=== PATIENT | male | born 1970 | race Caucasian/White ===

== ENCOUNTER 2017-10-09 19:26 | Emergency (ER) | payer OTHER ==
[2017-10-09] MEDS ORDERED: Acetaminophen 325 MG Suppository ONE (19:30)
[2017-10-09] MEDS ORDERED: Acetaminophen 650 MG Suppository ONE (19:30)
[2017-10-09] MEDS ORDERED: Ibuprofen 800 MG TAB ONE (19:36)
[2017-10-09 19:50] LABS: #Lymphocytes 0.5 thou/uL (1.20-3.40); #Monocytes 0.2 thou/uL (0.11-0.59); #Neutrophils 5.2 thou/uL (1.40-6.50); %Basophils 0.5 % (0.0-1.0); %Lymphocytes 8.7 % (21.0-51.0); %Monocytes 2.9 % (0.0-10.0); %Neutrophils 87.8 % (42.0-75.0); Hemoglobin 17.9 g/dL (14.0-18.0); Mean Corpuscular HGB CONC 35.7 g/dL (32.0-36.0); Mean Corpuscular Hemoglobin 32.3 pg (27.0-31.0); Mean Corpuscular Volume 90.6 fl (80.0-94.0); Platelet Count 153 thou/uL (130-400); RBC Distribution Width 11.5 % (11.5-14.5); Red Blood Cell (RBC) Count 5.55 mill/uL (4.70-6.10)
[2017-10-09 20:01] LABS: ALT (SGPT) 22 U/L (8-55); AST (SGOT) 20 U/L (5-34); Albumin 4.5 g/dL (3.5-5.0); Alkaline Phosphatase 50 U/L (40-150); Anion Gap 15 mmol/L (10-20); BUN (Urea Nitrogen) 15 mg/dL (8.9-20.6); Bilirubin, Total 0.7 mg/dL (0.2-1.2); Calc. Creatinine Clearance 0 mL/min (70-130); Calcium 9.1 mg/dL (7.8-10.44); Carbon Dioxide 24 mmol/L (22-29); Chloride 103 mmol/L (98-107); Estimated GFR-MDRD 59; Globulin 2.8 g/dL (2.4-3.5); Glucose 122 mg/dL (70-105); Potassium 3.6 mmol/L (3.5-5.1); Protein, Total 7.3 g/dL (6.0-8.3); Sodium 138 mmol/L (136-145)
[2017-10-09] MEDS ORDERED: Ketorolac Tromethamine 30 MG/ML VIAL ONE (20:29)
[2017-10-09] MEDS ORDERED: cefTRIAXone\\ROCEPHIN 2 GM VIAL ONE (20:29)
[2017-10-09] MEDS ORDERED: Oseltamivir 75 MG CAP ONE (20:56)
[2017-10-09] MEDS ORDERED: Ondansetron ODT 4 MG TAB ONE (22:16)
--- NOTE | 2017-10-09 23:16 | RAD ---
PORTABLE CHEST: Date: 10-09-17 FINDINGS: An AP portable film at 1928 shows a normal sized heart and clear lungs. No obvious lobar consolidatio n or effusion is seen. Very minimal basilar haziness is probably atelectasis due to an incomplete leslie ath. The mediastinum showed no acute change. IMPRESSION: No acute thoracic findings. POS: HOME
== END 2017-10-09 22:12 | disposition home or self-care (01) ==
LOC: BURERS 19:26
DX: J10.1 Influenza due to other identified influenza virus with other respiratory manifestations (principal); E03.9 Hypothyroidism, unspecified; Z79.899 Other long term (current) drug therapy
CPT/HCPCS: 71045; 80053; 83605; 85025; 87040; 96365; 96375; J0696; J1885; Q0162

== ENCOUNTER 2019-10-12 00:53 | Emergency (ER) | payer OTHER | END 2019-10-12 01:13 | disposition home or self-care (01) | LOC: BURERS 00:53 | DX: J11.1 Influenza due to unidentified influenza virus with other respiratory manifestations (principal) | CPT/HCPCS: 99281 ==